=== PATIENT | female | born 1955 | race Caucasian/White ===

== ENCOUNTER 2017-01-27 15:22 | Emergency (ER) | payer MEDICAID, OTHER ==
[2017-01-27 15:29] VITALS: BP 180/98; PULSE 61; RESP 18; TEMP 98; O2SAT 99
[2017-01-27] MEDS ORDERED: Tmp-Smz 800 mg-160 mg DS Tab PO STA (16:05)
--- NOTE | 2017-01-27 16:09 | C.PDOC ---
History Of Present Illness 61 yr old female presents to the ER for evaluation of left hand 2nd finger puncture wound sustained 2 weeks ago and now has new onset of increasing redness , swelling and pain. Patient states she accidentally punctured herself with a sewing needle. Patient denies discharge from the finger tip, fever, chills, chest pain, SOB, nausea, vomiting, headache, weakness or numbness. LEFT 2ND FINGER PUNCTURE 2 WKS AGO W NEW ONSET INCREASING REDNESS, SWELLING PAIN. PS ACCIDENTALLY PUNCTURED SELF W SEWING NEEDLE. NO DISCHARGE FROM FINGERTIP, FEVER. EXAM NONTOXIC EXT L 2 FINGER: +CELLULITIS DISTAL PHALANX. NAIL INTACT. NO PARONYCHIA. NO FOCAL FLUCTUANCE. NAIL WNL. NO LYMPHANGITIS. AROM WO DIFF. NO VISIBLE PUNCTURE WOUND. NEURO INTACT Time Seen by Provider: 01/27/17 15:32 Chief Complaint (Nursing): Needle Stick History Per: Patient History/Exam Limitations: no limitations Onset/Duration Of Symptoms: Days (2 weeks ago) Past Medical History Reviewed: Historical Data, Nursing Documentation, Vital Signs Vital Signs: Last Vital Signs Temp 98 F 01/27/17 15:27 Pulse 61 01/27/17 15:27 Resp 18 01/27/17 15:27 BP 180/98 H 01/27/17 15:27 Pulse Ox 99 01/27/17 16:13 - Medical History PMH: Depression, Gall Bladder Disease, HTN Family History: States: No Known Family Hx - Social History Hx Tobacco Use: No Hx Alcohol Use: No Hx Substance Use: No - Immunization History Hx Tetanus Toxoid Vaccination: No Hx Influenza Vaccination: No Hx Pneumococcal Vaccination: No Review Of Systems Except As Marked, All Systems Reviewed And Found Negative. Constitutional: Negative for: Fever, Chills Cardiovascular: Negative for: Chest Pain Respiratory: Negative for: Shortness of Breath Gastrointestinal: Negative for: Nausea, Vomiting Neurological: Negative for: Weakness, Numbness, Headache Physical Exam - Physical Exam Appears: Well, Non-toxic, No Acute Distress Skin: Warm, Dry, No Rash Extremity: Capillary Refill (<2), Other (Left, 2nd Finger - Cellulitis to the distal phalanx. Nail intact. Nail within limits. No paronychia. No focal fluctuance. No lymphangitis. AROM without difficulty. No visible puncture wound. ) Neurological/Psych: Oriented x3, Normal Speech, Normal Motor ED Course And Treatment O2 Sat by Pulse Oximetry: 99 Medical Decision Making Medical Decision Making: PLAN: * Bactrim PO * Keflex PO * Motrin PO Disposition Counseled Patient/Family Regarding: Diagnosis, Need For Followup, Rx Given - Disposition Referrals: [facility] [Outside] [facility] [Outside] Sarah Parr MD [Staff Provider] - Disposition: HOME/ ROUTINE Disposition Time: 16:12 Condition: IMPROVED Prescriptions: Cephalexin [cephalexin] 500 mg PO BID #14 cap Ibuprofen [Motrin] 600 mg PO Q6 #30 tab Sulfamethoxazole/Trimethoprim [Bactrim DS 800 mg-160 mg] 1 tab PO BID #14 tab Instructions: Cellulitis (ED) - Clinical Impression Clinical Impression: Cellulitis, Needle stick injury of finger - Scribe Statement The provider has reviewed the documentation as recorded by the Selwyn Perez Provider Attestation: All medical record entries made by the Selwyn were at my direction and personally dictated by me. I have reviewed the chart and agree that the record accurately reflects my personal performance of the history, physical exam, medical decision making, and the department course for this patient. I have also personally directed, reviewed, and agree with the discharge instructions and disposition.
[2017-01-27] MEDS ORDERED: Tmp-Smz 800 mg-160 mg DS Tab ONE (16:18)
[2017-01-27] MEDS ORDERED: Tetanus/Diphtheria Toxoids 0.5 ml Syringe IM ONE (16:22)
== END 2017-01-27 17:28 | disposition home or self-care (01) ==
LOC: C.ER 15:22
DX: L03.012 Cellulitis of left finger (principal)